=== PATIENT | female | born 1985 | race Caucasian/White ===

== ENCOUNTER 2017-10-10 14:05 | Day surgery (SDC) | payer OTHER ==
[~2017-10-10] VITALS: Ht 152.4 cm; Wt 54.9 kg
[~2017-10-10 14:05] MED LIST: LOR5/325 PO
[2017-10-10] MEDS ORDERED: NS(*) 0.9% 1000 ML BAG 1,000 ML IV ONE (14:26)
[2017-10-10] MEDS ORDERED: ONDANSETRON 4 MG/2 ML VIAL IVP ONE (14:30)
--- NOTE | 2017-10-10 14:31 | ER Report ---
History and Physical Time Seen By MD: 14:25 Hx. of Stated Complaint: ABD PAIN AND NAUSEA SINCE YESTERDAY. SENT FROM [facility] HPI/ROS CHIEF COMPLAINT: Abdominal pain HISTORY OF PRESENT ILLNESS: Patient is a 32-year-old female comes emergency Department today with a complaint of right lower quadrant pain. Patient states that the pain started about 16 hours went to [facility] and was determined to be questionable for acute appendicitis sent here for evaluation nausea without vomiting no diarrhea Carole is a G2 para 0 both miscarriages had a reported urine negative as an outpatient otherwise unremarkable. Sharp stabbing localized right lower quadrant made worse with pressure and palpation area REVIEW OF SYSTEMS: Respiratory: No cough, no dyspnea. Cardiovascular: No chest pain, no palpitations. Gastrointestinal: No vomiting pain in the right lower quadrant Musculoskeletal: No back pain. Remainder of the 14 system rev: Yes Allergies: Coded Allergies: No Known Drug Allergies (Unverified , 10/10/17) Home Meds Discontinued Scripts Hydrocodone Bit/Acetaminophen (HYDROCODON-ACETAMINOPHEN 5-325) 1 Each Tablet, 1 EACH PO Q4-6H, #12 TAKE ONE TABLET BY MOUTH EVERY 4-6 HOURS NEEDED FOR PAIN Prov:LUISA PAREDES DO 11/11/14 Reviewed Nurses Notes: Yes Old Medical Records Reviewed: Yes Hx Smoking: No Hx Substance Use Disorder: No Constitutional Vital Sign - Last 24 Hours 10/10/17 10/10/17 10/10/17 10/10/17 14:12 14:14 15:00 15:05 Temp 97.4 Pulse 95 79 Resp 22 B/P (MAP) 112/77 112/77 (89) 109/74 (86) Pulse Ox 99 96 10/10/17 10/10/17 10/10/17 15:30 15:40 16:00 Pulse 85 B/P (MAP) 96/66 (76) 107/67 (80) Pulse Ox 96 Physical Exam General Appearance: The patient is alert, has no immediate need for airway protection and no current signs of toxicity. [ ] Eyes: Pupils equal and round no injection. Respiratory: Chest is non tender, lungs are clear to auscultation. Cardiac: regular rate and rhythm [ ] Gastrointestinal: Abdomen is soft with mild to moderate tenderness to deep palpation right lower quadrant positive McBurney's tenderness no radiation no rebound or guarding no masses otherwise unremarkable exam Musculoskeletal: Neck: Neck is supple and non tender. Extremities have full range of motion and are non tender. Skin: No rashes or lesions. [ ] DIFFERENTIAL DIAGNOSIS: After history and physical exam differential diagnosis was considered for acute appendicitis ectopic colitis Medical Decision Making Data Points Result Diagram: 10/10/17 1443 10/10/17 1443 Laboratory Hematology Test 10/10/17 14:27 10/10/17 14:43 Urine Color Colorless Urine Clarity Clear Urine pH 5.0 pH (4.8-9.5) Urine Specific [place] 1.001 Urine Protein Negative mg/dL (NEGATIVE) Urine Glucose (UA) Negative mg/dL (NEGATIVE) Urine Ketones Negative mg/dL (NEGATIVE) Urine Blood Small (NEGATIVE) Urine Nitrite Negative (NEGATIVE) Urine Bilirubin Negative (NEGATIVE) Urine Urobilinogen Negative mg/dL (0.2-1.9) Urine Leukocyte Esterase Negative (NEGATIVE) Urine RBC 1 /HPF (0-2/HPF) Urine WBC <1 /HPF (0-5/HPF) Urine Squamous Epithelial Cells None /LPF (</=FEW) Urine Bacteria Negative /HPF (NONE-FEW) Urine Mucus None /HPF (NONE-FEW) Urine HCG, Qualitative Negative (NEGATIVE) Red Blood Count 4.88 M/uL (4.17-5.56) Mean Corpuscular Volume 86.9 fL (80.0-96.0) Mean Corpuscular Hemoglobin 29.9 pg (26.0-33.0) Mean Corpuscular Hemoglobin Concent 34.4 g/dL (32.0-36.0) Red Cell Distribution Width 13.8 % (11.5-14.5) Mean Platelet Volume 8.6 fL (7.2-11.1) Neutrophils (%) (Auto) 79.2 % (39.4-72.5) Lymphocytes (%) (Auto) 13.9 % (17.6-49.6) Monocytes (%) (Auto) 4.8 % (4.1-12.4) Eosinophils (%) (Auto) 1.2 % (0.4-6.7) Basophils (%) (Auto) 0.9 % (0.3-1.4) Nucleated RBC Relative Count (auto) 0.0 /100WBC Neutrophils # (Auto) 6.8 K/uL (2.0-7.4) Lymphocytes # (Auto) 1.2 K/uL (1.3-3.6) Monocytes # (Auto) 0.4 K/uL (0.3-1.0) Eosinophils # (Auto) 0.1 K/uL (0.0-0.5) Basophils # (Auto) 0.1 K/uL (0.0-0.1) Nucleated RBC Absolute Count (auto) 0.00 K/uL Prothrombin Time 12.8 seconds (12.0-14.4) Prothromb Time International Ratio 0.96 Activated Partial Thromboplast Time 28 seconds (23-35) Sodium Level 139 mmol/L (137-145) Potassium Level 3.5 mmol/L (3.5-5.0) Chloride Level 102 mmol/L (98-107) Carbon Dioxide Level 21 mmol/L (22-31) Blood Urea Nitrogen 5 mg/dl (7-18) Creatinine 0.80 mg/dl (0.52-1.04) Glomerular Filtration Rate Calc > 60.0 Random Glucose 85 mg/dl (75-110) Calcium Level 9.8 mg/dl (8.4-10.2) Total Bilirubin 0.7 mg/dl (0.2-1.3) Aspartate Amino Transf (AST/SGOT) 26 U/L (0-35) Alanine Aminotransferase (ALT/SGPT) 36 U/L (0-56) Alkaline Phosphatase 91 U/L (0-126) Total Protein 8.9 gm/dl (6.3-8.2) Albumin 5.0 g/dl (3.5-5.0) Lipase 126 U/L (23-300) Serum Alcohol < 10 mg/dl Chemistry Test 10/10/17 14:27 10/10/17 14:43 Urine Color Colorless Urine Clarity Clear Urine pH 5.0 pH (4.8-9.5) Urine Specific [place] 1.001 Urine Protein Negative mg/dL (NEGATIVE) Urine Glucose (UA) Negative mg/dL (NEGATIVE) Urine Ketones Negative mg/dL (NEGATIVE) Urine Blood Small (NEGATIVE) Urine Nitrite Negative (NEGATIVE) Urine Bilirubin Negative (NEGATIVE) Urine Urobilinogen Negative mg/dL (0.2-1.9) Urine Leukocyte Esterase Negative (NEGATIVE) Urine RBC 1 /HPF (0-2/HPF) Urine WBC <1 /HPF (0-5/HPF) Urine Squamous Epithelial Cells None /LPF (</=FEW) Urine Bacteria Negative /HPF (NONE-FEW) Urine Mucus None /HPF (NONE-FEW) Urine HCG, Qualitative Negative (NEGATIVE) White Blood Count 8.6 k/uL (4.5-11.0) Red Blood Count 4.88 M/uL (4.17-5.56) Hemoglobin 14.6 g/dL (12.0-16.0) Hematocrit 42.4 % (34.0-47.0) Mean Corpuscular Volume 86.9 fL (80.0-96.0) Mean Corpuscular Hemoglobin 29.9 pg (26.0-33.0) Mean Corpuscular Hemoglobin Concent 34.4 g/dL (32.0-36.0) Red Cell Distribution Width 13.8 % (11.5-14.5) Platelet Count 311 K/uL (150-450) Mean Platelet Volume 8.6 fL (7.2-11.1) Neutrophils (%) (Auto) 79.2 % (39.4-72.5) Lymphocytes (%) (Auto) 13.9 % (17.6-49.6) Monocytes (%) (Auto) 4.8 % (4.1-12.4) Eosinophils (%) (Auto) 1.2 % (0.4-6.7) Basophils (%) (Auto) 0.9 % (0.3-1.4) Nucleated RBC Relative Count (auto) 0.0 /100WBC Neutrophils # (Auto) 6.8 K/uL (2.0-7.4) Lymphocytes # (Auto) 1.2 K/uL (1.3-3.6) Monocytes # (Auto) 0.4 K/uL (0.3-1.0) Eosinophils # (Auto) 0.1 K/uL (0.0-0.5) Basophils # (Auto) 0.1 K/uL (0.0-0.1) Nucleated RBC Absolute Count (auto) 0.00 K/uL Prothrombin Time 12.8 seconds (12.0-14.4) Prothromb Time International Ratio 0.96 Activated Partial Thromboplast Time 28 seconds (23-35) Glomerular Filtration Rate Calc > 60.0 Calcium Level 9.8 mg/dl (8.4-10.2) Total Bilirubin 0.7 mg/dl (0.2-1.3) Aspartate Amino Transf (AST/SGOT) 26 U/L (0-35) Alanine Aminotransferase (ALT/SGPT) 36 U/L (0-56) Alkaline Phosphatase 91 U/L (0-126) Total Protein 8.9 gm/dl (6.3-8.2) Albumin 5.0 g/dl (3.5-5.0) Lipase 126 U/L (23-300) Serum Alcohol < 10 mg/dl Coagulation Test 10/10/17 14:43 Prothrombin Time 12.8 seconds Prothromb Time International Ratio 0.96 Activated Partial Thromboplast Time 28 seconds Toxicology Test 10/10/17 14:43 Serum Alcohol < 10 mg/dl Urinalysis Test 10/10/17 14:27 Urine Color Colorless Urine Clarity Clear Urine pH 5.0 pH (4.8-9.5) Urine Specific [place] 1.001 Urine Protein Negative mg/dL (NEGATIVE) Urine Glucose (UA) Negative mg/dL (NEGATIVE) Urine Ketones Negative mg/dL (NEGATIVE) Urine Blood Small (NEGATIVE) Urine Nitrite Negative (NEGATIVE) Urine Bilirubin Negative (NEGATIVE) Urine Urobilinogen Negative mg/dL (0.2-1.9) Urine Leukocyte Esterase Negative (NEGATIVE) Urine RBC 1 /HPF (0-2/HPF) Urine WBC <1 /HPF (0-5/HPF) Urine Squamous Epithelial Cells None /LPF (</=FEW) Urine Bacteria Negative /HPF (NONE-FEW) Urine Mucus None /HPF (NONE-FEW) Urine HCG, Qualitative Negative (NEGATIVE) ED Course/Re-evaluation ED Course ED clinical course medical decision making this is a 32-year-old female acute onset right lower quadrant pain CT scan does demonstrate acute appendicitis sent to surgery for preop and evaluation by general surgery for acute appendicitis Decision to Disposition Date: Oct 10, 2017 Decision to Disposition Time: 16:23 Depart Departure Latest Vital Signs Vital Signs Date Time Temp Pulse Resp B/P (MAP) Pulse Ox O2 Delivery O2 Flow Rate FiO2 10/10/17 16:00 107/67 (80) 10/10/17 15:40 85 96 10/10/17 14:12 97.4 22 Impression: Primary Impression: Acute appendicitis Condition: Improved Disposition: Admitted from ER New Scripts No Active Prescriptions or Reported Meds SAEID VARNER MD Oct 10, 2017 14:31
[2017-10-10] MEDS ORDERED: IOPAMIDOL 76% 75 ML INFUS BTL 75 ML ONE (14:41)
[2017-10-10 14:52] LABS: PLATELET COUNT, AUTOMATED 311 K/uL (150-450)
[2017-10-10 15:07] LABS: INR 0.96
--- NOTE | 2017-10-10 15:44 | RADIOLOGY IMAGING REPORT ---
FACILITY: [facility] PATIENT NAME: Javier Villalba : 1985 MR: [id number] V: [id number] EXAM DATE: ORDERING PHYSICIAN: SAEID VARNER TECHNOLOGIST: Location: [facility] Patient: Javier Villalba : 1985 Visit/Account:[id number] Date of Sevice: 10/10/2017 Examination: CHEST PA AND LAT Comparison: None. History: pain Findings: Cardiac and hilar contour size is normal. No consolidation, nodule, or peribronchial inflam mation. No pneumothorax, edema, or effusion. Osseous structures are intact. IMPRESSION: Negative chest. Results were discussed with SAEID VARNER at 10/10/2017 3:39 PM. Report Dictated By: Denis Dixon MD at 10/10/2017 3:38 PM Report E-Signed By: Denis Dixon MD at 10/10/2017 3:39 PM WSN:[id number]
--- NOTE | 2017-10-10 15:44 | RADIOLOGY IMAGING REPORT ---
FACILITY: [facility] PATIENT NAME: Javier Villalba : 1985 MR: [id number] V: [id number] EXAM DATE: ORDERING PHYSICIAN: SAEID VARNER TECHNOLOGIST: Location: Patient: Javier Villalba : 1985 Visit/Account:[id number] Date of Sevice: 10/10/2017 EXAMINATION: CT abdomen and pelvis with contrast COMPARISON: None. HISTORY: Right lower quadrant pain for one day. PROCEDURE: Multiplanar contrast enhanced CT of the abdomen and pelvis with 75 mL intravenous Isovue 3 70. One of the following dose optimization techniques was utilized in the performance of this exam: A utomated exposure control; adjustment of the mA and/or kV according to the patient's size; or use of an iterative reconstruction technique. Specific details can be referenced in the facility's radiolo gy CT exam operational policy. FINDINGS: Visualized thorax: No evidence of acute disease within the visualized lower thorax. Liver: Negative. Gallbladder and biliary system: Negative Spleen: Spleen size is normal. Pancreas: Negative. Adrenal glands: Negative. Kidneys and bladder: No renal mass or evidence of an obstructive uropathy. Urinary bladder is unrema rkable. Vessels: Within normal limits. Bowel and mesentery: Stomach is within normal limits. No small bowel obstruction. 8mm appendix with m ild mucosal hyperemia. No periappendiceal inflammation. Small amount of stool in the colon. No other evidence of bowel or mesenteric inflammation. Pelvic organs: Negative. Lymph nodes: No adenopathy. Free air/free fluid: None. Abdominal wall and osseous structures: Small fat-containing umbilical hernia. Osseous structures are unremarkable. IMPRESSION: Mildly dilated 8 mm appendix with mild mucosal hyperemia. Although there is no evidence of periappend iceal inflammation, an acute uncomplicated appendicitis is a possibility and surgical consultation is recommended. Results were discussed with SAEID VARNER at 10/10/2017 3:40 PM. Report Dictated By: Denis Dixon MD at 10/10/2017 3:34 PM Report E-Signed By: Denis Dixon MD at 10/10/2017 3:40 PM WSN:[id number]
[2017-10-10] MEDS ORDERED: ERTAPENEM(*) 1 GM VIAL 1 GM in NS(*) 0.9% 100 ML ADDVANT BAG 100 ML IVPB ONE (16:10)
[2017-10-10 16:19] VITALS: BP 107/68
[2017-10-10] MEDS ORDERED: MIDAZOLAM 2 MG/2 ML VIAL IVP PRN (16:20)
[2017-10-10] MEDS ORDERED: NORMOSOL R SOLN(*) 1000 ML BAG 1,000 ML IV PRN (16:20)
[2017-10-10] MEDS ORDERED: FAMOTIDINE 20 MG/50 ML PREMIX IVPB ONE (16:20)
[2017-10-10] MEDS ORDERED: ROPIVACAINE 0.5% 20 ML VIAL ONE (16:45)
[2017-10-10] MEDS ORDERED: LIDOCAINE MPF 1% 5 ML VIAL ONE (17:05)
[2017-10-10] MEDS ORDERED: PROPOFOL EMUL(*) 10MG/ML 20 ML 20 ML ONE (17:05)
[2017-10-10] MEDS ORDERED: ONDANSETRON 4 MG/2 ML VIAL ONE ×2 (17:05→18:51)
[2017-10-10] MEDS ORDERED: METOCLOPRAMIDE 10 MG/2 ML SDV ONE (17:05)
[2017-10-10] MEDS ORDERED: DEXAMETHASONE SOD 4 MG/ML VIAL ONE (17:07)
[2017-10-10] MEDS ORDERED: ROCURONIUM BROM 10 MG/ML 10 ML ONE (17:08)
[2017-10-10] MEDS ORDERED: fentaNYL CITR 100 MCG/2 ML AMP ONE ×2 (17:08→18:18)
[2017-10-10] MEDS ORDERED: SUGAMMADEX SOD 200 MG/2 ML SDV ONE (17:09)
--- NOTE | 2017-10-10 17:21 | Gen Surgery History & Physical ---
History of Present Illness Chief Complaint RLQ abdominal pain History of Present Illness 32yo female presents to the ER with abdominal pain that started in LLQ at 10: 00am yesterday. Today, it worsened and migrated to her RLQ. Now she has nausea. No diarrhea or constipation but she has had more BMs than usual today and yesterday; they have been formed. Decreased appetite. No F/C. WBC normal but CT scan suspicious for early appendicitis. History Home Meds Discontinued Scripts Hydrocodone Bit/Acetaminophen (HYDROCODON-ACETAMINOPHEN 5-325) 1 Each Tablet, 1 EACH PO Q4-6H, #12 TAKE ONE TABLET BY MOUTH EVERY 4-6 HOURS NEEDED FOR PAIN Prov:LUISA PAREDES DO 11/11/14 Allergies: Coded Allergies: No Known Drug Allergies (Unverified , 10/10/17) Review of Systems All Systems Reviewed/Normal: Yes, Except as Noted Gastrointestinal: Nausea, Abdominal Pain Exam General Appearance: Alert, Awake, No Acute Distress, Afebrile Neuro: No Gross deficits Eyes: PERRLA GI: Other (Soft, RLQ TTP.) Extremities: Warm, Perfused Medical Decision Making Data Points Result Diagram: 10/10/17 1443 10/10/17 1443 Assessment and Plan Problems: (1) Acute appendicitis Status: Acute Assessment & Plan: 10/10/17: Admit, NPO, IV fluids, IV abx, to OR for lap appy. Diagnosis and procedure, risks, alternatives, expected recovery all explained to the patient and her questions have been answered. She would like to proceed with this plan including surgery. Condition Stable. Time Spent: < 30 min Venous Thromboembolism VTE Risk Physician Assess for VTE Risk: Yes Patient's VTE Risk: Low VTE Diagnostic Test 2 Days Prior to Admit: No Antithrombotics Is Pt On Any Antithrombotics?: No Problem Qualifiers (1) Acute appendicitis: Acute appendicitis type: with localized peritonitis Qualified Codes: K35.3 - Acute appendicitis with localized peritonitis REGINE JONES MD Oct 10, 2017 17:21
[2017-10-10] MEDS ORDERED: DOCU-416 PO (18:17)
[2017-10-10] MEDS ORDERED: OXYC-854 PO (18:17)
[2017-10-10] MEDS ORDERED: KETOROLAC 30 MG/ML VIAL ONE (18:18)
--- NOTE | 2017-10-10 18:19 | Short(Outpt) Discharge Summary ---
Discharge Summary Reason for Hosp/Final Diag: (1) Acute appendicitis Status: Acute Hospital Course & Plan: 10/10/17: Admit, NPO, IV fluids, IV abx, to OR for lap appy. Diagnosis and procedure, risks, alternatives, expected recovery all explained to the patient and her questions have been answered. She would like to proceed with this plan including surgery. 10/10/17 (Postop): Lap appy completed without problems. Will d/c to home. Departure Discharge to: Home, Self Care Discharge Instructions Home Meds Active Scripts Docusate Sodium (COLACE) 100 Mg Capsule, 1 CAP PO BID, #30 CAP 0 Refills TAKE WITH A FULL GLASS OF WATER Prov:RAJINDER JONES MD 10/10/17 Oxycodone Hcl/Acet 5/325 Mg (ENDOCET 5-325 TABLET) 1 Each Tablet, 1-2 TAB PO Q4H Y for PAIN, #30 TAB 0 Refills Prov:RAJINDER JONES MD 10/10/17 Discontinued Scripts Hydrocodone Bit/Acetaminophen (HYDROCODON-ACETAMINOPHEN 5-325) 1 Each Tablet, 1 EACH PO Q4-6H, #12 TAKE ONE TABLET BY MOUTH EVERY 4-6 HOURS NEEDED FOR PAIN Prov:LUISA PAREDES DO 11/11/14 Follow up Referrals: General Surgery - 10/24/17 @ Surgery, General with Rajinder Jones Md You have a follow up appointment scheduled with Dr. Jones on 10/24/17, at 2: 15pm. Diet: Regular Activity: As Tolerated Special Instructions: You may remove the white surgical dressings on 10/12/17, then you can shower. After showering, leave the incisions open to air but leave the steristrips in place until they fall off on their own. Do not immerse the incisions for 2 weeks. Problem Qualifiers (1) Acute appendicitis: Acute appendicitis type: with localized peritonitis Qualified Codes: K35.3 - Acute appendicitis with localized peritonitis RAJINDER JONES MD Oct 10, 2017 18:19
--- NOTE | 2017-10-10 18:25 | Post Operative Progress Note ---
Post Operative Progress Note Date: Oct 10, 2017 Time: 18:19 Surgeon: Dorothy Dictation number: [id number] Anesthesia: GETA by Dr. Solo Pre-Op Diagnosis: Acute appendicitis Post-Op Diagnosis: LESLIE Findings: Very early appendicitis, no other intraabdominal pathology found Procedure(s): Lap appy Specimen Removed:(May be N/A): Appendix Complications: None Fluids: See anesthesia record Estimated Blood Loss: Minimal Date OP Note Dictated: Oct 10, 2017 Time OP Note Dictated: 18:19 REGINE JONES MD Oct 10, 2017 18:25
[2017-10-10 19:00] VITALS: BP 103/71
[2017-10-10 19:15] VITALS: BP 105/67
[2017-10-10 19:26] VITALS: BP 112/83
[2017-10-10 19:27] VITALS: BP 110/53
--- NOTE | 2017-10-10 22:50 | OPERATIVE REPORT 1 ---
EVENT DATE: October 10, 2017 SURGEON: Rajinder DeL a Cruz MD ANESTHESIOLOGIST: Rajinder Solo MD ANESTHESIA: General endotracheal anesthesia. PREOPERATIVE DIAGNOSIS Acute appendicitis. POSTOPERATIVE DIAGNOSIS Acute appendicitis. PROCEDURE PERFORMED Laparoscopic appendectomy. COMPLICATIONS None. CONDITION Stable. BLOOD LOSS Minimal. INDICATIONS This is a 32-year-old female who presented to the Emergency Room with a one-day history of abdominal pain that migrated to the right lower quadrant. Her white blood cell count was normal, but a CT scan was suspicious for early appendicitis. I was contacted for further evaluation and management. DESCRIPTION OF PROCEDURE The patient was brought to the operating room and placed supine on the operating table. General endotracheal anesthesia was administered, and her abdomen was prepped and draped in a sterile fashion. Timeout was completed, and I injected the infraumbilical skin with 0.5% ropivacaine plain. I made a curvilinear smiley face-type incision in the inferior umbilical rim and dissected down through the dermis and then the subcutaneous fat. I identified the midline fascia and made a vertical incision in the midline fascia. I grasped the fascial edges with Estrella clamps and then bluntly entered her peritoneal cavity with my finger. I placed two interrupted 0 Vicryl sutures transversely through the vertical fascial defect, inserted a 12 mm Jitendra-type port through this wound, and secured it in place with sutures. I insufflated the abdomen to a pressure of 15 mmHg and then inserted a 5 mm, 30-degree angled scope through this port. Next, under direct visualization, I placed a 5 mm port in the suprapubic midline and a 5 mm port in the left lower quadrant. I then looked all around the abdominal cavity, including the gallbladder, liver, and the readily visible portions of the stomach, colon, and small bowel, and I did not find any pathology. The peritoneum looked normal. I inspected her uterus and both ovaries, which appeared unremarkable. I then had her placed in Trendelenburg and planed towards her left. I removed the viscera from the right lower quadrant and then identified the appendix which was adherent to the lateral wall. Ultimately, I made a window by the base of the appendix and divided the mesoappendix with the Harmonic scalpel all the way to the tip and then divided the base of the appendix flush with the cecum with the Endo ISAURO stapler with a blue load. I then placed the appendix in a surgical specimen retrieval bag and removed it from the abdomen through the umbilical port site. I then inspected the staple line which was flush with the cecum, and it was hemostatic. I then inspected the mesoappendix which was also hemostatic. I irrigated and dried the right lower quadrant, suctioned out some fluid from the pericolic gutter as well as from the pelvis. Finding no other abnormalities and happy with how everything looked, I removed the 5 mm ports and inspected the peritoneal surfaces for bleeding. There was none. I removed the camera and the umbilical port after desufflating the abdomen and then placed a figure- of-eight 0 Vicryl suture through the vertical fascial defect and tied all three of these down with good reapproximation of the fascial edges. I then closed the skin at each port site with 4-0 Monocryl subcuticular sutures. The skin was cleaned and dried, and Steri-Strips were applied, followed by sterile surgical dressings. The patient was awakened and extubated in the operating room and transported to the recovery room in stable condition having tolerated the procedure without any apparent problems. RUSS
== END 2017-10-10 19:00 | disposition home or self-care (01) ==
LOC: ER 14:30 → OR 16:09
PROVIDERS: ATTEND Surgery
DX: K35.80 Unspecified acute appendicitis (principal); R07.89 Other chest pain
CPT/HCPCS: 44970; 71046; 74177; 80320; 81001; 81025; 83690; 85025; 85610; 85730; 88304; 96361; 96374; 99284; J1100; J1335; J1885; J2001; J2405; J2704; J2765; J2795; J3010; J3490; J7030; J7050; Q9967; 82040; 82247; 82310; 82374; 82435; 82565; 82947; 84075; 84132; 84155; 84295; 84450; 84460; 84520